=== PATIENT | male | born 1995 | race Caucasian/White ===

== ENCOUNTER 2021-09-07 00:40 | Emergency (ER) | payer MEDICAID ==
[~2021-09-07] VITALS: Ht 177.8 cm; Wt 77.3 kg
[2021-09-07] MEDS ORDERED: LORazepam 1 MG TABLET PO ONE (01:30)
[2021-09-07] MEDS ORDERED: ONDANSETRON HCL 4 MG TABLET PO ONE (01:30)
[2021-09-07 01:52] LABS: AMPHET/METH SCREEN,URINE NEGATIVE (NEGATIVE); BARBITURATE SCREEN, URINE NEGATIVE (NEGATIVE); BENZODIAZEPINES SCREEN,URINE NEGATIVE (NEGATIVE); CANNABINOID SCREEN,URINE POSITIVE (NEGATIVE); COCAINE SCREEN,URINE NEGATIVE (NEGATIVE); METHADONE SCREEN, URINE NEGATIVE (NEGATIVE); OPIATE SCREEN,URINE NEGATIVE (NEGATIVE)
[2021-09-07 01:52] LABS: COVID AG,FIA SOURCE NASOPHARYNGEAL
[2021-09-07 02:01] LABS: PHENCYCLIDINE SCREEN,URINE NEGATIVE (NEGATIVE)
[2021-09-07 02:19] VITALS: BP 140/99
== END 2021-09-07 02:40 | disposition home or self-care (01) ==
LOC: EMS 00:41
DX: F10.129 Alcohol abuse with intoxication, unspecified (principal); I10 Essential (primary) hypertension; F17.210 Nicotine dependence, cigarettes, uncomplicated; Z88.0 Allergy status to penicillin; Z20.822 Contact with and (suspected) exposure to COVID-19; Y90.8 Blood alcohol level of 240 mg/100 ml or more
CPT/HCPCS: 36415; 80307; 87426; 99283; G0480; Q0162

== ENCOUNTER 2021-11-24 12:44 | Emergency (ER) | payer MEDICAID ==
[~2021-11-24] VITALS: Ht 180.3 cm; Wt 77.3 kg
[2021-11-24 13:27] VITALS: BP 140/91
[2021-11-24] MEDS: SODIUM CHLORIDE 0.9% 1,000 ML IV ONE (14:25)
[2021-11-24] MEDS: ONDANSETRON HCL 4 MG/2 ML VIAL IVP ONE (14:26)
[2021-11-24 14:31] LABS: BASOPHILS % (AUTO) 0.9 % (0.0-2.0); EOSINOPHILS % (AUTO) 2.2 % (1.0-6.0); HEMATOCRIT 44.3 % (41-53); HEMOGLOBIN 15.1 g/dL (13.5-17.5); LYMPHOCYTES # (AUTO) 1.3 K/uL (1.0-4.8); LYMPHOCYTES % (AUTO) 12.9 % (22.0-44.0); MEAN CORPUSCULAR HEMOGLOBIN 32.4 pg (26.0-34.0); MEAN CORPUSCULAR VOLUME 95 fL (80-100); NEUTROPHILS # (AUTO) 7.2 K/uL (1.8-7.7); RED BLOOD CELL COUNT(AUTO) 4.65 MIL/uL (4.50-5.90); RED CELL DISTRIBUTION WIDTH 15.3 % (11.5-14.5)
[2021-11-24 14:36] LABS: ANION GAP 16 mmol/L (8-16); CALCIUM, TOTAL 9.8 mg/dL (8.8-10.5); CARBON DIOXIDE 23 mmol/L (22-29); CHLORIDE 98 mmol/L (98-107); CREATININE 0.73 mg/dL (0.60-1.30); GLOMERULAR FILTR. RATE CALC > 60 mL/min (>60); GLUCOSE,RANDOM 81 mg/dL (70-110); POTASSIUM 4.4 mmol/L (3.5-5.1); SODIUM SERUM 137 mmol/L (136-145); UREA NITROGEN, BLOOD 14 mg/dL (7-18)
[2021-11-24 14:42] LABS: ALANINE AMINOTRANSFERASE 84 U/L (12-78); ALBUMIN 4.5 g/dL (3.4-5.0); ALKALINE PHOSPHATASE 95 U/L (46-116); ASPARTATE AMINOTRANSFERASE 84 U/L (15-37); BILIRUBIN,TOTAL 1.1 mg/dL (0.1-1.0); LIPASE 73 U/L (73-393); TOTAL PROTEIN, SERUM 7.8 g/dL (6.4-8.2)
[2021-11-24 14:44] LABS: COVID AG,FIA SOURCE NASOPHARYNGEAL
[2021-11-24 14:49] LABS: PLATELET COUNT (AUTO) 121 K/uL (150-450)
== END 2021-11-24 15:36 | disposition home or self-care (01) ==
LOC: EMS 12:47
DX: R10.13 Epigastric pain (principal); R11.2 Nausea with vomiting, unspecified; J06.9 Acute upper respiratory infection, unspecified; F10.20 Alcohol dependence, uncomplicated; I10 Essential (primary) hypertension; Z88.0 Allergy status to penicillin; Y90.0 Blood alcohol level of less than 20 mg/100 ml; Z20.822 Contact with and (suspected) exposure to COVID-19
CPT/HCPCS: 36415; 71045; 80053; 83690; 85025; 87426; 96361; 96374; 99284; G0480; J2405; J7030

== ENCOUNTER 2022-01-11 20:22 | Inpatient (IN) | payer MEDICAID ==
[~2022-01-11] VITALS: Ht 177.8 cm; Wt 77.0 kg
[2022-01-11 21:09] LABS: BASOPHILS % (AUTO) 1.2 % (0.0-2.0); HEMATOCRIT 44.6 % (41-53); HEMOGLOBIN 15.5 g/dL (13.5-17.5); MEAN CORPUSCULAR HEMOGLOBIN 33.5 pg (26.0-34.0); MEAN CORPUSCULAR HGB CONC 34.6 G/dL (31.0-37.0); MEAN CORPUSCULAR VOLUME 97 fL (80-100); MONOCYTES # (AUTO) 0.8 K/uL (0.1-1.0); MONOCYTES % (AUTO) 13.1 % (2.0-9.0); NEUTROPHILS # (AUTO) 3.7 K/uL (1.8-7.7); NEUTROPHILS % (AUTO) 63.7 % (40.0-70.0); PLATELET COUNT (AUTO) 235 K/uL (150-450); RED BLOOD CELL COUNT(AUTO) 4.62 MIL/uL (4.50-5.90); RED CELL DISTRIBUTION WIDTH 14.4 % (11.5-14.5)
[2022-01-11 21:19] LABS: ANION GAP 20 mmol/L (8-16); CALCIUM, TOTAL 9.4 mg/dL (8.8-10.5); CARBON DIOXIDE 21 mmol/L (22-29); CHLORIDE 97 mmol/L (98-107); CREATININE 0.75 mg/dL (0.60-1.30); GLOMERULAR FILTR. RATE CALC > 60 mL/min (>60); GLUCOSE,RANDOM 176 mg/dL (70-110); POTASSIUM 3.7 mmol/L (3.5-5.1); SODIUM SERUM 138 mmol/L (136-145); UREA NITROGEN, BLOOD 4 mg/dL (7-18)
[2022-01-11 21:24] LABS: ALANINE AMINOTRANSFERASE 178 U/L (12-78); ALBUMIN 4.6 g/dL (3.4-5.0); ALKALINE PHOSPHATASE 117 U/L (46-116); ASPARTATE AMINOTRANSFERASE 243 U/L (15-37); BILIRUBIN,TOTAL 0.5 mg/dL (0.1-1.0); LIPASE 83 U/L (73-393); TOTAL PROTEIN, SERUM 9.2 g/dL (6.4-8.2)
[2022-01-11 21:32] LABS: APPEARANCE,URINE CLEAR (CLEAR); BILIRUBIN,URINE NEGATIVE (NEGATIVE); GLUCOSE, URINE (UA) NEGATIVE (NEGATIVE); KETONES,URINE 40 mg/dL (NEGATIVE); LEUKOCYTE ESTERASE ,URINE NEGATIVE (NEGATIVE); NITRATE,URINE NEGATIVE (NEGATIVE); OCCULT BLOOD,URINE TRACE (NEGATIVE); PROTEIN,URINE POS 1+ (NEGATIVE)
[2022-01-11 21:59] LABS: BACTERIA,URINE None Seen /HPF (None Seen); RBC,URINE 0-2 /HPF (0-2); WBC,URINE None Seen /HPF (0-5)
[2022-01-11] MEDS ORDERED: SODIUM CHLORIDE 0.9% 1,000 ML IV ONE (22:00)
[2022-01-11] MEDS ORDERED: PANTOPRAZOLE SODIUM 40 MG/VIAL IVP ONE ×2 (22:15→23:45)
[2022-01-11] MEDS ORDERED: ONDANSETRON HCL 4 MG/2 ML VIAL IVP ONE (22:15)
[2022-01-11 22:37] LABS: PROTHROMBIN TIME 10.3 SEC (9.4-11.6)
[2022-01-11] MEDS ORDERED: PB/HYOSCY/ATR/SCOP/LIDO/MAALOX 55 ML BOTTLE PO ONE (23:00)
[2022-01-12] MEDS ORDERED: ONDANSETRON HCL 4 MG/2 ML VIAL IVP ONE (00:15)
[2022-01-12] MEDS ORDERED: MORPHINE SULFATE 4 MG/ML SYRINGE IVP ONE ×2 (00:15→02:15)
[2022-01-12] MEDS ORDERED: OCTREOTIDE ACETATE 100 MCG/ML VIAL IVP ONE (00:15)
[2022-01-12 00:36] LABS: COVID AG,FIA SOURCE NASAL SWAB
[2022-01-12] MEDS ORDERED: SODIUM CHLORIDE 0.9% 1,000 ML IV ONE (01:15)
[2022-01-12] MEDS ORDERED: IOHEXOL 350 MG/ML 100 ML VIAL ONE (01:16)
[2022-01-12] MEDS ORDERED: SODIUM CHLORIDE 0.9% 100 ML ONE (01:16)
[2022-01-12] MEDS ORDERED: RINGERS SOLUTION,LACTATED 1,000 ML IV SCH (02:45)
[2022-01-12] MEDS ORDERED: ONDANSETRON HCL 4 MG/2 ML VIAL IVP PRN (02:45)
[2022-01-12] MEDS ORDERED: 1: MAGNESIUM SULFATE 2 GM, MVI, ADULT NO.1 WITH VIT K 10 ML, THIAMINE 100 MG, FOLIC ACID IV SCH ×10 (03:00→08:00)
[2022-01-12] MEDS: MORPHINE SULFATE 2 MG/ML SYRINGE IVP PRN ×5 (03:40→20:03)
[2022-01-12 04:00] VITALS: BP 105/64
[2022-01-12 06:54] LABS: BASOPHILS % (AUTO) 0.4 % (0.0-2.0); EOSINOPHILS % (AUTO) 3.2 % (1.0-6.0); HEMATOCRIT 38.4 % (41-53); HEMOGLOBIN 13.1 g/dL (13.5-17.5); LYMPHOCYTES # (AUTO) 1.3 K/uL (1.0-4.8); LYMPHOCYTES % (AUTO) 28.2 % (22.0-44.0); MEAN CORPUSCULAR HEMOGLOBIN 33.2 pg (26.0-34.0); MEAN CORPUSCULAR HGB CONC 34.2 G/dL (31.0-37.0); MEAN CORPUSCULAR VOLUME 97 fL (80-100); MONOCYTES # (AUTO) 0.7 K/uL (0.1-1.0); MONOCYTES % (AUTO) 16.1 % (2.0-9.0); NEUTROPHILS # (AUTO) 2.4 K/uL (1.8-7.7); NEUTROPHILS % (AUTO) 52.1 % (40.0-70.0); PLATELET COUNT (AUTO) 185 K/uL (150-450); RED BLOOD CELL COUNT(AUTO) 3.96 MIL/uL (4.50-5.90); RED CELL DISTRIBUTION WIDTH 14.5 % (11.5-14.5)
[2022-01-12 07:07] LABS: ALANINE AMINOTRANSFERASE 135 U/L (12-78); ALBUMIN 3.4 g/dL (3.4-5.0); ALKALINE PHOSPHATASE 87 U/L (46-116); ANION GAP 12 mmol/L (8-16); ASPARTATE AMINOTRANSFERASE 166 U/L (15-37); BILIRUBIN,TOTAL 0.5 mg/dL (0.1-1.0); CARBON DIOXIDE 23 mmol/L (22-29); CHLORIDE 99 mmol/L (98-107); CREATININE 0.76 mg/dL (0.60-1.30); GLOMERULAR FILTR. RATE CALC > 60 mL/min (>60); GLUCOSE,RANDOM 205 mg/dL (70-110); POTASSIUM 4.1 mmol/L (3.5-5.1); SODIUM SERUM 134 mmol/L (136-145); UREA NITROGEN, BLOOD 3 mg/dL (7-18)
[2022-01-12 07:15] LABS: CALCIUM, TOTAL 7.9 mg/dL (8.8-10.5)
[2022-01-12 07:37] VITALS: BP 115/59
[2022-01-12] MEDS: PANTOPRAZOLE SODIUM 40 MG/VIAL IVP SCH ×2 (07:42→21:16)
[2022-01-12] MEDS ORDERED: LORazepam 2 MG TABLET PO PRN (08:15)
[2022-01-12] MEDS ORDERED: RINGERS LACTATED IV ONE (08:15)
[2022-01-12 08:48] LABS: HEMOGLOBIN A1C 5.5 % (3.8-5.6)
[2022-01-12] MEDS ORDERED: LORazepam 2 MG/ML VIAL IVP PRN (11:00)
[2022-01-12] MEDS ORDERED: *CLINICAL-LEVOFLOXACIN IVPB DOSING CLINICAL ONE (11:00)
[2022-01-12] MEDS: SODIUM CHLORIDE 0.9% 1,000 ML IV SCH (11:00)
[2022-01-12] MEDS ORDERED: LORA-999 PO ×2 (11:13→11:14)
[2022-01-12 11:25] VITALS: BP 127/60
[2022-01-12] MEDS: MetroNIDAZOLE 500 MG/NACL 100 ML IV SCH ×3 (12:12→23:49)
[2022-01-12] MEDS: LEVOFLOXACIN 750 MG/D5% WATER 150 ML IV SCH (13:11)
[2022-01-12] MEDS: DIAZEPAM 2 MG TABLET PO PRN (15:24)
[2022-01-12 15:29] VITALS: BP 149/93
[2022-01-12 16:18] LABS: AMPHET/METH SCREEN,URINE NEGATIVE (NEGATIVE); BARBITURATE SCREEN, URINE POSITIVE (NEGATIVE); BENZODIAZEPINES SCREEN,URINE NEGATIVE (NEGATIVE); CANNABINOID SCREEN,URINE POSITIVE (NEGATIVE); COCAINE SCREEN,URINE NEGATIVE (NEGATIVE); METHADONE SCREEN, URINE NEGATIVE (NEGATIVE); OPIATE SCREEN,URINE POSITIVE (NEGATIVE)
[2022-01-12 16:20] LABS: PHENCYCLIDINE SCREEN,URINE NEGATIVE (NEGATIVE)
[2022-01-12] MEDS ORDERED: LORazepam 2 MG/ML VIAL IVP ONE (18:45)
[2022-01-12] MEDS ORDERED: METOCLOPRAMIDE HCL 5 MG/ML 2 ML VIAL IVP ONE (18:45)
[2022-01-12 20:40] VITALS: BP 138/107
[2022-01-13] MEDS: ACETAMINOPHEN 325 MG TABLET PO PRN ×5 (00:01→19:44)
[2022-01-13] MEDS: ONDANSETRON HCL 4 MG/2 ML VIAL IVP PRN ×3 (00:04→14:20)
[2022-01-13] MEDS: MORPHINE SULFATE 2 MG/ML SYRINGE IVP PRN ×7 (00:10→23:16)
[2022-01-13] MEDS: SODIUM CHLORIDE 0.9% 1,000 ML IV SCH ×2 (00:16→11:05)
[2022-01-13] MEDS ORDERED: LORazepam 1 MG TABLET PO ONE (02:45)
[2022-01-13] MEDS: DIAZEPAM 2 MG TABLET PO PRN ×2 (02:55→20:52)
[2022-01-13 04:04] VITALS: BP 138/78
[2022-01-13] MEDS: MetroNIDAZOLE 500 MG/NACL 100 ML IV SCH ×4 (05:36→23:15)
[2022-01-13] MEDS ORDERED: LORazepam 2 MG TABLET PO PRN (07:00)
[2022-01-13 08:52] VITALS: BP 147/87
[2022-01-13] MEDS: PANTOPRAZOLE SODIUM 40 MG/VIAL IVP SCH ×2 (08:57→21:10)
[2022-01-13] MEDS ORDERED: LORazepam 2 MG TABLET PO SCH (09:00)
[2022-01-13] MEDS: LEVOFLOXACIN 750 MG/D5% WATER 150 ML IV SCH (11:05)
[2022-01-13] MEDS: METOCLOPRAMIDE HCL 5 MG/ML 2 ML VIAL IVP SCH ×2 (12:40→20:45)
[2022-01-13] MEDS ORDERED: LORazepam 2 MG/ML VIAL IVP ONE (15:30)
[2022-01-13 16:24] VITALS: BP 138/89
[2022-01-13 20:00] VITALS: BP 143/105
[2022-01-13] MEDS: ZOLPIDEM TARTRATE 5 MG TABLET PO PRN (20:45)
[2022-01-14] MEDS: DIAZEPAM 2 MG TABLET PO PRN ×2 (01:21→22:33)
[2022-01-14] MEDS: ZOLPIDEM TARTRATE 5 MG TABLET PO PRN ×2 (01:22→22:33)
[2022-01-14] MEDS: MORPHINE SULFATE 2 MG/ML SYRINGE IVP PRN ×5 (03:25→19:51)
[2022-01-14] MEDS: SODIUM CHLORIDE 0.9% 1,000 ML IV SCH ×2 (03:52→16:48)
[2022-01-14 05:04] VITALS: BP 142/91
[2022-01-14 06:52] LABS: BASOPHILS % (AUTO) 0.7 % (0.0-2.0); EOSINOPHILS % (AUTO) 2.9 % (1.0-6.0); HEMATOCRIT 42.4 % (41-53); HEMOGLOBIN 14.5 g/dL (13.5-17.5); LYMPHOCYTES # (AUTO) 1.3 K/uL (1.0-4.8); MEAN CORPUSCULAR HEMOGLOBIN 33.3 pg (26.0-34.0); MEAN CORPUSCULAR HGB CONC 34.3 G/dL (31.0-37.0); MEAN CORPUSCULAR VOLUME 97 fL (80-100); MONOCYTES % (AUTO) 13.3 % (2.0-9.0); NEUTROPHILS # (AUTO) 4.9 K/uL (1.8-7.7); NEUTROPHILS % (AUTO) 66.1 % (40.0-70.0); PLATELET COUNT (AUTO) 189 K/uL (150-450); RED BLOOD CELL COUNT(AUTO) 4.37 MIL/uL (4.50-5.90); RED CELL DISTRIBUTION WIDTH 14.1 % (11.5-14.5)
[2022-01-14 07:06] LABS: ANION GAP 6 mmol/L (8-16); CALCIUM, TOTAL 9.4 mg/dL (8.8-10.5); CARBON DIOXIDE 31 mmol/L (22-29); CHLORIDE 96 mmol/L (98-107); CREATININE 0.86 mg/dL (0.60-1.30); GLOMERULAR FILTR. RATE CALC > 60 mL/min (>60); GLUCOSE,RANDOM 109 mg/dL (70-110); SODIUM SERUM 133 mmol/L (136-145); UREA NITROGEN, BLOOD 4 mg/dL (7-18)
[2022-01-14] MEDS: MetroNIDAZOLE 500 MG/NACL 100 ML IV SCH (07:06)
[2022-01-14] MEDS: ONDANSETRON HCL 4 MG/2 ML VIAL IVP PRN ×3 (07:09→15:26)
[2022-01-14 08:11] VITALS: BP 139/88
[2022-01-14] MEDS: METOCLOPRAMIDE HCL 5 MG/ML 2 ML VIAL IVP SCH ×3 (08:16→16:46)
[2022-01-14] MEDS: PANTOPRAZOLE SODIUM 40 MG/VIAL IVP SCH ×2 (08:17→20:44)
[2022-01-14] MEDS: LEVOFLOXACIN 750 MG/D5% WATER 150 ML IV SCH (12:01)
[2022-01-14] MEDS: LORazepam 2 MG/ML VIAL IVP PRN (14:36)
[2022-01-14 16:08] VITALS: BP 115/75
[2022-01-14] MEDS: ChlordiazePOXIDE HCL 25 MG CAPSULE PO SCH ×2 (16:46→20:44)
[2022-01-14 19:40] VITALS: BP 144/82
[2022-01-15] MEDS: MORPHINE SULFATE 2 MG/ML SYRINGE IVP PRN ×6 (00:13→22:45)
[2022-01-15] MEDS: METOCLOPRAMIDE HCL 5 MG/ML 2 ML VIAL IVP SCH ×3 (01:03→16:20)
[2022-01-15] MEDS: ZOLPIDEM TARTRATE 5 MG TABLET PO PRN (04:27)
[2022-01-15] MEDS: LORazepam 2 MG/ML VIAL IVP PRN ×2 (04:27→17:05)
[2022-01-15 04:45] VITALS: BP 119/77
[2022-01-15] MEDS: DIAZEPAM 2 MG TABLET PO PRN (05:26)
[2022-01-15] MEDS: SODIUM CHLORIDE 0.9% 1,000 ML IV SCH ×2 (05:29→16:22)
[2022-01-15] MEDS ORDERED: LORazepam 1 MG TABLET PO PRN (07:00)
[2022-01-15 07:21] VITALS: BP 104/56
[2022-01-15 07:48] LABS: BASOPHILS % (AUTO) 1.4 % (0.0-2.0); EOSINOPHILS % (AUTO) 6.1 % (1.0-6.0); HEMOGLOBIN 14.2 g/dL (13.5-17.5); LYMPHOCYTES # (AUTO) 1.4 K/uL (1.0-4.8); LYMPHOCYTES % (AUTO) 27.9 % (22.0-44.0); MEAN CORPUSCULAR HEMOGLOBIN 33.6 pg (26.0-34.0); MEAN CORPUSCULAR HGB CONC 34.7 G/dL (31.0-37.0); MEAN CORPUSCULAR VOLUME 97 fL (80-100); MONOCYTES # (AUTO) 0.6 K/uL (0.1-1.0); MONOCYTES % (AUTO) 12.5 % (2.0-9.0); NEUTROPHILS # (AUTO) 2.6 K/uL (1.8-7.7); NEUTROPHILS % (AUTO) 52.1 % (40.0-70.0); PLATELET COUNT (AUTO) 192 K/uL (150-450); RED BLOOD CELL COUNT(AUTO) 4.24 MIL/uL (4.50-5.90); RED CELL DISTRIBUTION WIDTH 14.2 % (11.5-14.5)
[2022-01-15 08:02] LABS: ANION GAP 7 mmol/L (8-16); CALCIUM, TOTAL 9.3 mg/dL (8.8-10.5); CARBON DIOXIDE 29 mmol/L (22-29); CHLORIDE 100 mmol/L (98-107); CREATININE 0.73 mg/dL (0.60-1.30); GLOMERULAR FILTR. RATE CALC > 60 mL/min (>60); GLUCOSE,RANDOM 96 mg/dL (70-110); POTASSIUM 3.5 mmol/L (3.5-5.1); SODIUM SERUM 136 mmol/L (136-145); UREA NITROGEN, BLOOD 1 mg/dL (7-18)
[2022-01-15] MEDS: ChlordiazePOXIDE HCL 25 MG CAPSULE PO SCH ×3 (08:14→21:49)
[2022-01-15] MEDS: PANTOPRAZOLE SODIUM 40 MG/VIAL IVP SCH ×2 (08:14→21:49)
[2022-01-15] MEDS ORDERED: LORazepam 1 MG TABLET PO SCH (09:00)
[2022-01-15 19:30] VITALS: BP 136/88
[2022-01-15 21:47] VITALS: BP 143/94
[2022-01-16] MEDS: ACETAMINOPHEN 325 MG TABLET PO PRN (00:40)
[2022-01-16] MEDS: METOCLOPRAMIDE HCL 5 MG/ML 2 ML VIAL IVP SCH ×2 (00:42→08:23)
[2022-01-16] MEDS: ZOLPIDEM TARTRATE 5 MG TABLET PO PRN (01:34)
[2022-01-16] MEDS: MORPHINE SULFATE 2 MG/ML SYRINGE IVP PRN (03:25)
[2022-01-16 04:37] VITALS: BP 140/98
[2022-01-16] MEDS ORDERED: LORazepam 1 MG TABLET PO PRN (07:00)
[2022-01-16 08:14] LABS: BASOPHILS % (AUTO) 0.7 % (0.0-2.0); EOSINOPHILS % (AUTO) 4.1 % (1.0-6.0); LYMPHOCYTES # (AUTO) 1.6 K/uL (1.0-4.8); LYMPHOCYTES % (AUTO) 15.9 % (22.0-44.0); MEAN CORPUSCULAR HEMOGLOBIN 33.5 pg (26.0-34.0); MEAN CORPUSCULAR HGB CONC 34.8 G/dL (31.0-37.0); MEAN CORPUSCULAR VOLUME 96 fL (80-100); MONOCYTES # (AUTO) 0.9 K/uL (0.1-1.0); MONOCYTES % (AUTO) 9.2 % (2.0-9.0); NEUTROPHILS % (AUTO) 70.1 % (40.0-70.0); PLATELET COUNT (AUTO) 202 K/uL (150-450); RED BLOOD CELL COUNT(AUTO) 4.47 MIL/uL (4.50-5.90); RED CELL DISTRIBUTION WIDTH 14.2 % (11.5-14.5)
[2022-01-16] MEDS: SODIUM CHLORIDE 0.9% 1,000 ML IV SCH (08:15)
[2022-01-16] MEDS: LORazepam 2 MG/ML VIAL IVP PRN (08:20)
[2022-01-16] MEDS: PANTOPRAZOLE SODIUM 40 MG/VIAL IVP SCH (08:21)
[2022-01-16] MEDS: ChlordiazePOXIDE HCL 25 MG CAPSULE PO SCH (08:23)
[2022-01-16 08:24] VITALS: BP 143/91
[2022-01-16 08:25] LABS: ANION GAP 11 mmol/L (8-16); CALCIUM, TOTAL 9.6 mg/dL (8.8-10.5); CARBON DIOXIDE 25 mmol/L (22-29); CHLORIDE 100 mmol/L (98-107); CREATININE 0.73 mg/dL (0.60-1.30); GLOMERULAR FILTR. RATE CALC > 60 mL/min (>60); GLUCOSE,RANDOM 129 mg/dL (70-110); POTASSIUM 3.5 mmol/L (3.5-5.1); SODIUM SERUM 136 mmol/L (136-145); UREA NITROGEN, BLOOD 2 mg/dL (7-18)
[2022-01-16] MEDS ORDERED: MULTIVITAMINS WITH MINERALS, THERAPEUTIC TABLET PO SCH (09:00)
[2022-01-16] MEDS ORDERED: THIAMINE 100 MG TABLET PO SCH (09:00)
[2022-01-16] MEDS ORDERED: FOLIC ACID 1 MG TABLET PO SCH (09:00)
[2022-01-16] MEDS ORDERED: ONDA-104 PO (09:55)
== END 2022-01-16 10:30 | disposition home or self-care (01) | DRG 241 ==
LOC: EMS 20:30 → 6S 01-12 02:00
PROVIDERS: ADMIT Internal Medicine; ATTEND Internal Medicine
DX: K29.21 Alcoholic gastritis with bleeding (principal); D62 Acute posthemorrhagic anemia; F10.239 Alcohol dependence with withdrawal, unspecified; K52.9 Noninfective gastroenteritis and colitis, unspecified; F12.90 Cannabis use, unspecified, uncomplicated; Y90.4 Blood alcohol level of 80-99 mg/100 ml; I10 Essential (primary) hypertension; R74.8 Abnormal levels of other serum enzymes; F41.9 Anxiety disorder, unspecified; Z20.822 Contact with and (suspected) exposure to COVID-19; Z90.49 Acquired absence of other specified parts of digestive tract; Z88.0 Allergy status to penicillin
CPT/HCPCS: 71045; 74177; 76700; 80048; 80053; 80076; 81001; 81003; 82271; 83036; 83605; 83690; 85018; 85025; 85610; 85730; 87081; 99285; C9113; G0480; J1956; J2060; J2270; J2354; J2405; J2765; J3411; J3475; J3490; J7030; J7050; J7120; Q9967; 36415-L1; 36415-TC

== ENCOUNTER 2022-07-16 01:18 | Emergency (ER) | payer MEDICAID ==
[~2022-07-16] VITALS: Ht 177.8 cm; Wt 63.6 kg
[~2022-07-16 01:18] MED LIST: ONDA-104 PO
[2022-07-16 02:12] VITALS: BP 144/91
[2022-07-16 02:26] LABS: BASOPHILS % (AUTO) 1.3 % (0.0-2.0); EOSINOPHILS % (AUTO) 1.2 % (1.0-6.0); HEMATOCRIT 45.4 % (41-53); HEMOGLOBIN 15.3 g/dL (13.5-17.5); LYMPHOCYTES # (AUTO) 2.4 K/uL (1.0-4.8); LYMPHOCYTES % (AUTO) 18.4 % (22.0-44.0); MEAN CORPUSCULAR HEMOGLOBIN 30.5 pg (26.0-34.0); MEAN CORPUSCULAR HGB CONC 33.6 G/dL (31.0-37.0); MEAN CORPUSCULAR VOLUME 91 fL (80-100); MONOCYTES # (AUTO) 1.1 K/uL (0.1-1.0); MONOCYTES % (AUTO) 8.7 % (2.0-9.0); NEUTROPHILS # (AUTO) 9.1 K/uL (1.8-7.7); NEUTROPHILS % (AUTO) 70.4 % (40.0-70.0); PLATELET COUNT (AUTO) 480 K/uL (150-450); RED CELL DISTRIBUTION WIDTH 16.5 % (11.5-14.5)
[2022-07-16 02:40] LABS: ANION GAP 8 mmol/L (8-16); CALCIUM, TOTAL 8.7 mg/dL (8.8-10.5); CARBON DIOXIDE 27 mmol/L (22-29); CHLORIDE 101 mmol/L (98-107); GLUCOSE,RANDOM 107 mg/dL (70-110); POTASSIUM 3.6 mmol/L (3.5-5.1); SODIUM SERUM 136 mmol/L (136-145); UREA NITROGEN, BLOOD 5 mg/dL (7-18)
[2022-07-16 02:46] LABS: GLOMERULAR FILTR. RATE CALC > 60 mL/min (>60)
[2022-07-16 02:47] LABS: ALANINE AMINOTRANSFERASE 49 U/L (12-78); ALBUMIN 3.8 g/dL (3.4-5.0); ALKALINE PHOSPHATASE 130 U/L (46-116); ASPARTATE AMINOTRANSFERASE 36 U/L (15-37); TOTAL PROTEIN, SERUM 8.1 g/dL (6.4-8.2)
[2022-07-16 02:58] LABS: BILIRUBIN,TOTAL 0.5 mg/dL (0.1-1.0)
[2022-07-16] MEDS ORDERED: ONDANSETRON HCL 4 MG TABLET PO ONE (03:00)
== END 2022-07-16 05:20 | disposition home or self-care (01) ==
LOC: EMS 01:22
DX: S00.33XA Contusion of nose, initial encounter (principal); S09.90XA Unspecified injury of head, initial encounter; T51.91XA Toxic effect of unspecified alcohol, accidental (unintentional), initial encounter; I10 Essential (primary) hypertension; F41.9 Anxiety disorder, unspecified; F12.90 Cannabis use, unspecified, uncomplicated; Z88.0 Allergy status to penicillin; Z79.899 Other long term (current) drug therapy; Y92.89 Other specified places as the place of occurrence of the external cause; W01.198A Fall on same level from slipping, tripping and stumbling with subsequent striking against other object, initial encounter; Y93.89 Activity, other specified; Y99.8 Other external cause status
CPT/HCPCS: 99284; 70450; 80053; 85025; 36415; 70486; 72125; Q0162